=== PATIENT | female | born 1955 | race American Indian/Alaskan Native ===

== ENCOUNTER 2018-11-18 09:05 | Outpatient (CLI) | payer BC ==
--- NOTE | 2018-11-18 10:12 | XRay Report ---
XRAY LEFT SHOULDER THREE VIEWS: 11/18/18 09:05:00 CLINICAL: Left shoulder pain. FINDINGS: No fracture or dislocation. Normal glenohumeral joint. Mild acromioclavicular joint arthritis. The soft tissues are normal. IMPRESSION: Mild acromioclavicular joint arthritis.
== END 2018-11-18 09:06 | disposition home or self-care (01) ==
LOC: SPVIMAG 09:05
PROVIDERS: ATTEND Internal Medicine
DX: M19.012 Primary osteoarthritis, left shoulder (principal)